=== PATIENT | female | born 1935 | race Caucasian/White ===

== ENCOUNTER 2018-09-11 10:48 | Emergency (ER) | payer OTHER, BC ==
[2018-09-11 11:21] VITALS: BP 153/76; PULSE 84; TEMP 98.6; BMI 22.2
[2018-09-11] MEDS ORDERED: DIPHTH,PERTUSS(ACELL),TET 0.5 ML DISP.SYRIN IM ONE ×2 (11:23→12:02)
--- NOTE | 2018-09-11 11:23 | PDOC ---
History of Present Illness - General Chief Complaint: Injury Stated Complaint: FELL ON WEDNESDAY BLACK EYE Time Seen by Provider: 09/11/18 10:53 History Source: Patient Exam Limitations: No Limitations - History of Present Illness Initial Comments: 83 yo F presents with bruising to the R eye area 2 days after a fall. Fall was mechanical, no LOC. No weakness, numbness since that time. She removed a dressing she had applied and the wound started to bleed. She presents for bleeding as well as for concern about the bruising around her eye. Denies headache. Did not seek evaluation at the time of injury. No anticoagulant use. Uncertain of last tetanus booster. Past History - Past Medical History Allergies/Adverse Reactions: Allergies Allergy/AdvReac Type Severity Reaction Status Date / Time No Known Allergies Allergy Verified 09/11/18 10:49 Home Medications: Ambulatory Orders Amlodipine Besylate 5 mg PO DAILY 09/11/18 Anastrozole [Arimidex -] 1 mg PO DAILY 09/11/18 Ipatropium 1 spray .ROUTE ASDIR 09/11/18 Multivitamins [Tab-A-Vit -] 1 tab PO DAILY 09/11/18 Potassium Chloride [K-Dur -] 10 meq PO DAILY 09/11/18 Tramadol HCl [Tramadol HCl ER] 100 mg PO BID 09/11/18 Zoledronic Acid/Man/Water [Reclast -] 5 mg IVPB ONCE 09/11/18 COPD: No HTN: Yes Other medical history: LEFT BREAST CA - Suicide/Smoking/Psychosocial Hx Smoking History: Never smoked Have you smoked in the past 12 months: No Information on smoking cessation initiated: No Hx Alcohol Use: No Drug/Substance Use Hx: No Review of Systems - Review of Systems Able to Perform ROS?: Yes Comments:: GENERAL/CONSTITUTIONAL: No fever or chills. No weakness. HEAD, EYES, EARS, NOSE AND THROAT: No change in vision. No ear pain or discharge. No sore throat. CARDIOVASCULAR: No chest pain or shortness of breath. RESPIRATORY: No cough, wheezing, or hemoptysis. GASTROINTESTINAL: No nausea, vomiting, diarrhea or constipation. GENITOURINARY: No dysuria, frequency, or change in urination. MUSCULOSKELETAL: No joint or muscle swelling or pain. No neck or back pain. SKIN: No rash. NEUROLOGIC: No headache, vertigo, loss of consciousness, or change in strength/ sensation. ENDOCRINE: No increased thirst. No abnormal weight change. HEMATOLOGIC/LYMPHATIC: No anemia, easy bleeding, or history of blood clots. ALLERGIC/IMMUNOLOGIC: No hives or skin allergy. *Physical Exam - Vital Signs Last Vital Signs Temp Pulse Resp BP Pulse Ox 98.6 F 84 20 153/76 97 09/11/18 10:49 09/11/18 10:49 09/11/18 10:49 09/11/18 10:49 09/11/18 10:49 - Physical Exam Comments: GENERAL: Awake, alert, and fully oriented, in no acute distress HEAD: +Abrasion to lateral portion of R eyebrow. Small amt of fresh blood at the site, no laceration noted. +R periorbital hematoma EYES: PERRLA, EOMI, sclera anicteric, conjunctiva clear ENT: Auricles normal inspection, hearing grossly normal, nares patent, oropharynx clear without exudates. Moist mucosa NECK: Normal ROM, supple, no lymphadenopathy, JVD, or masses EXTREMITIES: Normal range of motion, no edema. No clubbing or cyanosis. No cords, erythema, or tenderness NEUROLOGICAL: Cranial nerves II through XII grossly intact. Normal speech, normal gait. Motor and sensation intact SKIN: Warm, Dry, normal turgor, no rashes or lesions noted. Medical Decision Making - Medical Decision Making 09/11/18 11:27 Wound care- wound was cleaned with water, no laceration. Likely the bleeding was caused by disrupting the clot when the dressing was removed. Petroleum gauze applied with sterile gauze and tape. Will obtain CTH based on her age and visible trauma. Will give tdap. Instructed her to allow the wound to dry, then keep it uncovered. If she chooses to cover, use petroleum gauze to prevent sticking and disrupting the healing again. *DC/Admit/Observation/Transfer Diagnosis at time of Disposition: Abrasion Head injury Qualifiers: Encounter type: initial encounter Qualified Code(s): S09.90XA - Unspecified injury of head, initial encounter - Discharge Dispostion Disposition: HOME Condition at time of disposition: Stable Decision to Admit order: No - Referrals - Patient Instructions - Post Discharge Activity
== END 2018-09-11 12:47 | disposition home or self-care (01) ==
LOC: FER 10:48
PROC: 3E0234Z Introduction of Serum, Toxoid and Vaccine into Muscle, Percutaneous Approach (ICD-10-PCS; principal; 2018-09-11)
DX: S00.211A Abrasion of right eyelid and periocular area, initial encounter (principal); I10 Essential (primary) hypertension; Z85.3 Personal history of malignant neoplasm of breast; W01.0XXA Fall on same level from slipping, tripping and stumbling without subsequent striking against object, initial encounter; Y93.89 Activity, other specified; Y92.9 Unspecified place or not applicable
CPT/HCPCS: 70450-TC; 90715; 99281-25